=== PATIENT | female | born 1955 | race Asian ===

== ENCOUNTER → 2018-06-11 | Outpatient (CLI) | payer OTHER ==
--- NOTE | 2018-06-11 16:26 | WOMENS IMAGING REPORT ---
EXAM DESCRIPTION: BILAT SCREENING MAMMO W/CAD COMPLETED DATE/TIME: 06/11/2018 3:57 pm REASON FOR STUDY: ROUTINE SCREENING MAMMOGRAM Z12.31 Z12.31 ENCNTR SCREEN MAMMOGRAM FOR MALIGNANT N EOPLASM OF SUSHANT COMPARISON: 2012 TECHNIQUE: Standard craniocaudal and mediolateral oblique views of each breast recorded using TouchFramea l acquisition. LIMITATIONS: None. FINDINGS: No masses, calcifications or architectural distortion. No areas of suspicion. Read with the assistance of CAD. .[facility] - R2 Cenova Version 1.3 .[facility] - R2 Cenova Version 2.1 .[facility] - R2 Cenova Version 2.4 .[facility] - R2 Cenova Version 2.4 .[facility] - R2 Soil Specialist Version 9.2 IMPRESSION: NORMAL MAMMOGRAM. BIRADS 1. BREAST DENSITY: c. The breasts are heterogeneously dense, which may obscure small masses. BIRAD: 1 NEGATIVE RECOMMENDATION: ROUTINE SCREENING COMMENT: The patient has been notified of the results by letter per SA requirements. Additional no tification policies are in place for contacting patient with suspicious or incomplete findings. Quality ID #[id number]: The [employer] recommends an annual screening mammogram for women aged 40 years or over. This facility utilizes a reminder system to ensure that all patients receive reminder letters, and/or direct phone calls for appointments. This includes reminders for routine scr eening mammograms, diagnostic mammograms, or other Breast Imaging Interventions when appropriate. Th is patient will be placed in the appropriate reminder system. The [employer] (ACR) has developed recommendations for screening MRI of the breast s in certain patient populations, to be used in conjunction with mammography. Breast MRI surveillanc e may be appropriate for women with more than 20% lifetime risk of developing breast cancer as deter mined by genetic testing, significant family history of the disease, or history of mantle radiation f or Hodgkins Disease. ACR Practice Guidelines 2008. TECHNICAL DOCUMENTATION: FINDING NUMBER: (1) ASSESSMENT: (1) JOB ID: [id number] [employer]- All Rights Reserved Reading location - IP/workstation name: [email or web address]
== END ==
LOC: WI 15:44
PROVIDERS: ATTEND Internal Medicine
DX: Z12.31 Encounter for screening mammogram for malignant neoplasm of breast (principal)
CPT/HCPCS: 77067

== ENCOUNTER → 2019-08-31 | Outpatient (CLI) | payer OTHER ==
[2019-08-31 14:56] LABS: HEMATOCRIT 39.8 % (36.0-47.0); HEMOGLOBIN 13.7 g/dL (12.0-15.5); MEAN CORPUSCULAR HEMOGLOBIN 31.9 pg (27.0-33.4); MEAN CORPUSCULAR HGB CONC 34.4 g/dL (32.0-36.0); MEAN CORPUSCULAR VOLUME 93 fl (80-97); PLATELET COUNT 221 10^3/uL (150-450); RED BLOOD COUNT 4.29 10^6/uL (3.72-5.28); RED CELL DISTRIBUTION WIDTH 13.2 % (11.5-14.0); WHITE BLOOD COUNT 3.6 10^3/uL (4.0-10.5)
[2019-08-31 15:22] LABS: ALBUMIN 4.6 g/dL (3.5-5.0); ALKALINE PHOSPHATASE 64 U/L (38-126); AMYLASE 60 U/L (30-110); ANION GAP 8 (5-19); ASPARTATE AMINO TRANSFERASE 25 U/L (14-36); BILIRUBIN,TOTAL 0.8 mg/dL (0.2-1.3); BLOOD UREA NITROGEN 14 mg/dL (7-20); CALCIUM 9.9 mg/dL (8.4-10.2); CARBON DIOXIDE 32 mmol/L (22-30); CHLORIDE 101 mmol/L (98-107); GLUCOSE 97 mg/dL (75-110); POTASSIUM 4.5 mmol/L (3.6-5.0); TOTAL PROTEIN 7.7 g/dL (6.3-8.2)
== END ==
LOC: OD 14:18
PROVIDERS: ATTEND Internal Medicine Gastroenterology
DX: R10.13 Epigastric pain (principal)
CPT/HCPCS: 36415; 80048; 80076; 82150; 83690; 85027

== ENCOUNTER → 2019-09-07 | Outpatient (CLI) | payer OTHER ==
--- NOTE | 2019-09-07 09:38 | RADIOLOGY REPORT (SQ) ---
EXAM DESCRIPTION: U/S ABDOMEN LIMITED W/O DOP IMAGES COMPLETED DATE/TIME: 09/07/2019 7:27 am REASON FOR STUDY: EPIGASTRIC PAIN R10.13 EPIGASTRIC PAIN COMPARISON: None. TECHNIQUE: Dynamic and static grayscale images acquired of the abdomen and recorded on PACS. Additio bailey selected color Doppler and spectral images recorded. LIMITATIONS: None. FINDINGS: PANCREAS: No masses. Visualized pancreatic duct normal caliber. LIVER: No masses. Echotexture normal. LIVER VASCULATURE: Normal directional flow of the main portal vein and hepatic veins. GALLBLADDER: No stones. Normal wall thickness. No pericholecystic fluid. ULTRASOUND-DETECTED LOCKHART'S SIGN: Negative. INTRAHEPATIC DUCTS AND COMMON DUCT: CBD and intrahepatic ducts normal caliber. No filling defects. INFERIOR VENA CAVA: Normal flow. AORTA: No aneurysm. RIGHT KIDNEY: Normal size. Normal echogenicity. No solid or suspicious masses. No hydronephrosis. No calcifications. PERITONEAL AND RIGHT PLEURAL SPACE: No ascites or effusions. OTHER: No other significant findings. IMPRESSION: NORMAL RIGHT UPPER QUADRANT ULTRASOUND. TECHNICAL DOCUMENTATION: JOB ID: [id number] 2010 [employer]- All Rights Reserved Reading location - IP/workstation name: [email or web address]
== END ==
LOC: RAD 07:06
PROVIDERS: ATTEND Internal Medicine Gastroenterology
DX: R10.13 Epigastric pain (principal)
CPT/HCPCS: 76705

== ENCOUNTER 2020-06-06 15:00 | Emergency (ER) | payer OTHER ==
--- NOTE | 2020-06-06 15:16 | ER Document Report ---
ED Fall - General Chief Complaint: Fall Injury Stated Complaint: FALL/HEAD INJURY Time Seen by Provider: 06/06/20 15:11 Primary Care Provider: JOSE CARLOS MEDEIROS MD [Primary Care Provider] - Follow up as needed TRAVEL OUTSIDE OF THE [place] IN LAST 30 DAYS: No - HPI Notes: 65-year-old female presents to ED for evaluation of closed head injury sustained yesterday. Notes that she was rocking backwards on an office chair. States that she the left posterior aspect of her head. Has some pain radiating down into the left cervical paraspinal region. Patient reports that she does have a mild headache. Patient reports no visual disturbances, nausea, vomiting, neck pain, paresthesias, or loss of consciousness. Patient states that her sister is a nurse and recommended she come for evaluation. Patient denies other complaints at this time. She is not anticoagulated. - Related data Allergies/Adverse Reactions: Environmental Allergy (Severe, Uncoded 03/16/13 16:19) SOB, Sneezing Home Medications: Amlodipine and Losartan Past Medical History - Social History Smoking Status: Unknown if Ever Smoked Family History: None - Past Medical History Cardiac Medical History: Reports: Hx Hypertension Denies: Hx Coronary Artery Disease, Hx Heart Attack Pulmonary Medical History: Reports: Hx Bronchitis Denies: Hx Asthma - unsure, being tested, Hx COPD, Hx Pneumonia Neurological Medical History: Denies: Hx Cerebrovascular Accident, Hx Seizures Musculoskeletal Medical History: Reports Hx Arthritis - Osteoarthritis, gout - Immunizations Hx Diphtheria, Pertussis, Tetanus Vaccination: Yes Review of Systems - Review of Systems Notes: Constitutional: Negative for fever. HENT: Negative for sore throat. Eyes: Negative for visual changes. Cardiovascular: Negative for chest pain. Respiratory: Negative for shortness of breath. Gastrointestinal: Negative for abdominal pain, vomiting or diarrhea. Genitourinary: Negative for dysuria. Musculoskeletal: Negative for back pain. Skin: Negative for rash. Neurological: + for headaches - weakness or numbness. 10 point ROS negative except as marked above and in HPI. Physical Exam - Vital signs Vitals: Temp Pulse Resp BP Pulse Ox 98.0 F 56 L 20 142/59 H 97 06/06/20 15:05 06/06/20 15:05 06/06/20 15:05 06/06/20 15:05 06/06/20 15:05 General: No acute distress. Alert and oriented x3. Sitting comfortably in a stretcher. Skin: No jaundice, pallor, or erythema. Warm and dry. HEENT: No evidence of mcgowan signs. Tenderness to left poseterior occiput. No evidence of racoon eyes. Pupils are equal round reactive to light and accommodation. Extraocular movements are intact. TMs without erythema or bulging. No hemotympanum bilaterally. Canals are clear. Nares patent without any discharge. Teeth in good condition. Pharynx without erythema, edema, or exudates. No tonsillar enlargement. Uvula is midline. Airway is patent. Neck: Supple and nontender, with no lymphadenopathy. No cervical spinal tenderness. Full range of motion. Heart: Regular rate and rhythm. S1,S2. No murmurs, rubs, or gallops. Lungs: Clear to ausculation bilaterally. No wheezes, rhonchi, rales. Equal chest expansion. No retractions. Abdomen: Soft, nontender to palpation, nondistended. Positive bowel sounds in all 4 quadrants. No masses. No CVA tenderness bilaterally. Back: No midline spinal TTP. Full range of motion. Neuro: Cranial nerves II-XII are intact. GCS 15. Moving all extremities without discomfort. Strength 5+ in all extremities. Sensation intact x4. No pronator drift. Coordination intact x4. Gait steady. Deep tendon reflexes 2+ upper and lower extremities bilaterally. Radial and pedal pulses 2+ bilaterally. Psych: Mood and affect appropriate. Course - Re-evaluation Re-evalutation: 06/06/20 16:16 65-year-old female presents to ED for evaluation of head injury sustained last night. Patient was neurovascularly intact. Patient had no loss of consciousness. Patient had a head CT which was negative for hemorrhage or fracture. CT scan of the cervical region is negative for fractures or dislocations. Imaging is discussed with patient. Patient most likely has a closed head injury. I discussed with the patient potential course of injury and recommendations for treatment. Patient is advised to rest and avoid strenuous activity. Avoid contact sports for at least 2 weeks. Use Tylenol as needed for headache, avoid NSAIDs. Patient will be given information about head injury to review. Patient is advised if they have any worsening or concerning symptoms that they should return to the emergency department for reevaluation. Patient is advised to follow up with primary care. Patient understands indications to return to the ER. Patient is agreeable with this plan. - Vital Signs Vital signs: Temp Pulse Resp BP Pulse Ox 98.0 F 56 L 20 142/59 H 97 06/06/20 15:05 06/06/20 15:05 06/06/20 15:05 06/06/20 15:05 06/06/20 15:05 - Laboratory Results Critical Laboratory Results Reviewed: No Critical Results - Radiology Results Critical Radiology Results Reviewed: No Critical Results Discharge - Discharge Clinical Impression: Closed head injury Qualifiers: Encounter type: initial encounter Qualified Code(s): S09.90XA - Unspecified injury of head, initial encounter Disposition: HOME, SELF-CARE Instructions: Head Injury Precautions ([facility]) Referrals: JOSE CALROS MEDEIROS MD [Primary Care Provider] - Follow up as needed
--- NOTE | 2020-06-06 15:39 | RADIOLOGY REPORT (SQ) ---
EXAM DESCRIPTION: CT HEAD WITHOUT IMAGES COMPLETED DATE/TIME: 06/06/2020 3:29 pm REASON FOR STUDY: fall COMPARISON: None. TECHNIQUE: Axial images acquired through the brain without intravenous contrast. Images reviewed wi th bone, brain and subdural windows. Additional sagittal and coronal reconstructions were generated. Images stored on PACS. All CT scanners at this facility use dose modulation, iterative reconstruction, and/or weight based d osing when appropriate to reduce radiation dose to as low as reasonably achievable (ALARA). [facility]: Dose Right [facility]: CareDose [facility]: Dose Right [facility]: Teradose 4D [facility]: Smart BlogGlue RADIATION DOSE: CT Rad equipment meets quality standard of care and radiation dose reduction techniq ues were employed. CTDIvol: 53.2 mGy. DLP: 1070 mGy-cm. mGy. LIMITATIONS: None. FINDINGS: VENTRICLES: Normal size and contour. CEREBRUM: No masses. No hemorrhage. No midline shift. No evidence for acute infarction. Normal gra y/white matter differentiation. No areas of low density in the white matter. CEREBELLUM: No masses. No hemorrhage. No alteration of density. No evidence for acute infarction. EXTRAAXIAL SPACES: No fluid collections. No masses. ORBITS AND GLOBE: No intra- or extraconal masses. Normal contour of globe without masses. CALVARIUM: No fracture. PARANASAL SINUSES: No fluid or mucosal thickening. SOFT TISSUES: No mass or hematoma. OTHER: No other significant finding. IMPRESSION: NORMAL BRAIN CT WITHOUT CONTRAST. EVIDENCE OF ACUTE STROKE: NO. COMMENT: Quality ID # [id number]: Final reports with documentation of one or more dose reduction techniques (e.g., Automated exposure control, adjustment of the mA and/or kV according to patient size, use of iterative reconstruction technique) TECHNICAL DOCUMENTATION: JOB ID: [id number] 2010 [employer]- All Rights Reserved Reading location - IP/workstation name: [email or web address]
--- NOTE | 2020-06-06 15:41 | RADIOLOGY REPORT (SQ) ---
EXAM DESCRIPTION: CT CERVICAL SPINE WITHOUT IMAGES COMPLETED DATE/TIME: 06/06/2020 3:29 pm REASON FOR STUDY: fall COMPARISON: None. TECHNIQUE: Axial images acquired through the cervical spine without intravenous contrast. Images re viewed with lung, soft tissue and bone windows. Reconstructed coronal and sagittal MPR images review ed. Images stored on PACS. All CT scanners at this facility use dose modulation, iterative reconstruction, and/or weight based d osing when appropriate to reduce radiation dose to as low as reasonably achievable (ALARA). [facility]: Dose Right [facility]: CareDose [facility]: Dose Right [facility]: Teradose 4D [facility]: Smart ActiViews RADIATION DOSE: CT Rad equipment meets quality standard of care and radiation dose reduction techniq ues were employed. CTDIvol: 18.2 mGy. DLP: 339 mGy-cm. mGy. LIMITATIONS: None. FINDINGS: ALIGNMENT: Anatomic. MINERALIZATION: Normal. VERTEBRAL BODIES: No fractures or dislocation. DISCS: Multilevel disc space narrowing with osteophytes. FACETS, LATERAL MASSES, POSTERIOR ELEMENTS: Facet arthropathy. No fractures. No dislocation. No ac jarod findings. HARDWARE: None in the spine. VISUALIZED RIBS: No fractures. LUNG APICES AND SOFT TISSUES: No significant or acute findings. OTHER: No other significant finding. IMPRESSION: CHRONIC DEGENERATIVE CHANGES. NO ACUTE FINDINGS. TECHNICAL DOCUMENTATION: JOB ID: [id number] Quality ID # [id number]: Final reports with documentation of one or more dose reduction techniques (e.g., Au tomated exposure control, adjustment of the mA and/or kV according to patient size, use of iterative reconstruction technique) 2010 [employer]- All Rights Reserved Reading location - IP/workstation name: [email or web address]
[2020-06-06 16:45] VITALS: BP 140/62
== END 2020-06-06 16:45 | disposition home or self-care (01) ==
LOC: ER 15:00
DX: S09.90XA Unspecified injury of head, initial encounter (principal); M54.2 Cervicalgia; W07.XXXA Fall from chair, initial encounter; Y93.89 Activity, other specified; M47.812 Spondylosis without myelopathy or radiculopathy, cervical region; I10 Essential (primary) hypertension; Z79.899 Other long term (current) drug therapy; Z91.048 Other nonmedicinal substance allergy status
CPT/HCPCS: 70450; 72125; 99284